=== PATIENT | female | born 2000 | race Caucasian/White ===

== ENCOUNTER 2020-10-02 11:26 | Emergency (ER) | payer SELFPAY ==
[~2020-10-02] VITALS: Ht 167.6 cm; Wt 53.2 kg
[2020-10-02 11:32] VITALS: BP 111/55; Ht 167.6 cm; Wt 53.2 kg
[2020-10-02] MEDS ORDERED: IPRATROPIUM BRO15 M1 NASAL (12:08)
[2020-10-02] MEDS ORDERED: IBUPROFEN800 MG PO (12:08)
[2020-10-02] MEDS ORDERED: CYCLOBENZAPRINE10 MG PO (12:08)
[2020-10-02] MEDS ORDERED: ACETAMINOPHEN500 M1 PO (12:08)
[2020-10-02] MEDS ORDERED: ALBUTEROL SULF8.5 GM INH (12:08)
[2020-10-02] MEDS ORDERED: MEDROL DOSE PACK4 MG PO (12:08)
== END 2020-10-02 12:34 | disposition home or self-care (01) ==
LOC: D.ER 11:26
DX: J20.9 Acute bronchitis, unspecified (principal); R68.89 Other general symptoms and signs